=== PATIENT | male | born 1960 | race Caucasian/White ===

== ENCOUNTER → 2018-06-29 | Outpatient (CLI) | payer MEDICARE, MEDICAID ==
[~2018-06-29] MED LIST: DIGO125T PO; REGADENOSON 0.4 MG/5 ML DISP.SYRIN. IV ONE; WARF1TAB69 PO
--- NOTE | 2018-06-29 12:41 | RAD ---
MR#: [id number] Date of Study: 06/29/2018 Ordering Physician: NATHANIEL LORA, Referring Physician: MELECIO TRAN Tech: VICTORIANO Plummer ARRT (R) (N) APPROVED REPORT Test Type: Pharmacological Stress Nurse/Tech: Aliya Lewis RN Test Indications: Dyspnea on exertion, leg cramps Cardiac History: Hypertension, Diabetes,smoker, previous arrythmia (20 years ago) Medications: See Electronic Medical Record Medical History: See Electronic Medical Record Resting ECG: SR with BBB Resting Heart Rate: 80 bpm Resting Blood Pressure: 154/78mmHg Pretest Chest Pain: No chest pain Nurse/Tech Notes S1,S2 and lungs clear to auscultation. Consent: The procedure was explained to the patient in lay terms. Informed consent was witnessed. Vaughn eout was entered into [employer]. History and Stress Test performed by VICTORIANO Plummer ARRT (R) (N) Pharm. Details Pharmacologic stress testing was performed using 0.4mg per 5ml of regadenoson given intravenously ove r 7-10 seconds. Stress Symptoms Patient stated left side of his heart felt like it wasn't beating correctly. Fatigue POST EXERCISE Reason for Termination: Infusion complete Target HR: No Max HR: 91 bpm Max Blood Pressure: 150/57mmHg Blood Pressure response to exercise: Normal blood pressure response during stress. Heart Rate response to exercise: WNL Chest Pain: No. Arrhythmia: No. ST Change: No. INTERPRETATION Stress EKG Conclusion: The resting EKG shows a sinus rhythm with septal Q waves and nonspecific ST-T wave changes. The stress EKG shows no significant changes from baseline. No EKG evidence of stressed induced ischemia. Imaging Protocol IMAGE PROTOCOL: Rest Tc-99m/stress Tc-99m 1 day Rest: Stress: Viability: Radiopharm.Tc99m JjbihmjypGy40j Sestamibi Vbsl49wWa 34mCi Img Date 06/29/2018 06/29/2018 Inj-Img [id number]. 60min. Rest Admin Site:IV - Left AntecubitalAdministrator:Shayy Cherry, NMTCB, ARRT (R)(N) Stress Admin Site: IV - Left AntecubitalAdministrator: Elio Bautista RT (R)(N) STRESS DATA End Diast. Vol.121.0mlLVEDV index BSA51.0ml End Syst. Vol.50.0mlLVESV index BSA21.0ml Myocardial Cvar388.0gEject. Xndtcnih96.0% Stress Scores Regional WT3.00Summed WT23.00 Regional WM0.00Summed WM4.00 LV Perfusion The stress scans showed no significant defects. The rest scans showed no significant defects. Nuclear imaging shows no reversible ischemia or infarct. Wall Motion Left ventricular ejection fraction was 57% with no regional wall motion abnormalities. LV Perf. Quant 17 Seg. SSS0.00 17 Seg. SRS2.00 17 Seg. SDS0.00 Stress Defect Extent (% LAD)0.00Rest Defect Extent (% LAD)0.00Rev. Defect Extent (% LAD)0.00 Stress Defect Extent (% LCX) 0.00Rest Defect Extent (% LCX)7.50Rev. Defect Extent (% LCX)0.00 Stress Defect Extent (% RCA)0.00Rest Defect Extent (% RCA)0.00Rev. Defect Extent (% RCA)0.00 Stress Defect Extent (% ROYCE)0.00Rest Defect Extent (% ROYCE)2.40Rev. Defect Extent (% ROYCE)0.00 IMPRESSION LV Viability Summary: Significantly viable myocardium Conclusion 1. Abnormal baseline EKG but no EKG evidence of stress-induced ischemia. 2. Nuclear imaging shows no reversible ischemia or infarct. 3. Normal left ventricular systolic function with an ejection fraction of 57%. 4. Low to moderately low risk Lexiscan nuclear stress test. Signed by : Jose R Vega MD Electronically Approved : 06/29/2018 12:40:01
== END | disposition home or self-care (01) ==
LOC: NM 08:46
PROVIDERS: ATTEND Family Medicine
DX: I45.4 Nonspecific intraventricular block (principal); R25.2 Cramp and spasm; I10 Essential (primary) hypertension; E11.42 Type 2 diabetes mellitus with diabetic polyneuropathy; F17.200 Nicotine dependence, unspecified, uncomplicated
CPT/HCPCS: 78452; 93017; A9500; J2785

== ENCOUNTER → 2020-09-04 | Outpatient (CLI) | payer MEDICARE, MEDICAID ==
[2020-09-03 10:29] VITALS: BP 156/87
[~2020-09-04] MED LIST changes: +BUPR300T92 PO; +DAPT350V IV; -DIGO125T PO; +DIGO125T3 PO; +DIGO250T3 PO; +DULO60CA45 PO; +GABA300C9 PO; +GADOTERATE 7.5 MMOL/15ML VIAL. IVP ONE; +GLIM4TAB8 PO; +HYDR-2763 PO; +HYDR25TA10 PO; +INSU100I32 SQ; +LOSA100T14 PO; -REGADENOSON 0.4 MG/5 ML DISP.SYRIN. IV ONE; +WARF-31 PO
--- NOTE | 2020-09-05 09:47 | RAD ---
EXAMINATION: MRI LEFT LOWER EXTREMITY W/WO INDICATIONS: Diabetic foot wound, nonhealing wound left lateral ankle. TECHNIQUE: Multiplanar multisequence MRI of the left ankle was obtained before and after administrat ion of 20 mL clariscan contrast. COMPARISON: Left ankle radiograph 08/18/2020 FINDINGS: There is a tibiotalar joint effusion with extensive synovial thickening and enhancement. There is dif fuse marrow signal abnormality in the distal tibia and talus with extensive confluent low T1 signal, edema, and enhancement. There is diffuse tibiotalar cartilage loss, joint space narrowing, disruption of the subchondral bone plate of the medial talar dome, and erosion of the anterior tibial plafond. This is consistent with septic arthritis with osteomyelitis. Additional joint effusion in the subtalar joint. There is milder confluent low T1 marrow signal with marrow edema in the posterior facet of the calcaneus and along the lateral cortex of the calcaneus arnett spicious for osteomyelitis. There is extensive confluent low T1 signal and marrow edema in the distal fibula consistent with oste omyelitis. There is mild scattered marrow edema in the midfoot without evidence of osteomyelitis. There is a soft tissue wound overlying the posterior lateral ankle just posterior to the lateral mall eolus and directly overlying the peroneal tendons. There is a sinus tract extending deep to the later al malleolus and to the peroneal tendons. There is a longitudinal split tear of the peroneus brevis a nd longus tendon with severe tenosynovitis. There is moderate tenosynovitis of the medial flexor tend ons and possible minimal tenosynovitis of the anterior extensor tendons. Medial flexor and anterior e xtensor tendons are intact. Achilles tendon is intact. There is diffuse muscular atrophy and edema. There is a 1.6 x 1.0 cm T2 hyperintense, lobulated cystic structure with peripheral enhancement in th e tarsal tunnel between the posterior calcaneus and the posterior tibial neurovascular structures. Th is appears to be extending from the tibiotalar joint . Extensive diffuse subcutaneous edema. IMPRESSION: 1. 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 2. Osteomyelitis of the distal fibula. 3. Probable septated arthritis of the posterior subtalar joint and small amount of osteomyelitis analisa g the posterior subtalar facet and medial cortex of the calcaneus. 4. Soft tissue wound and sinus tract in the posterior lateral ankle just posterior to the distal fibu la and directly overlying the peroneal tendons. There are longitudinal split tears of the peroneal tendons and severe peroneal tenosynovitis, suspici ous for septic tenosynovitis. 5. Tenosynovitis of the medial flexor tendons. 6. 1.6 cm lobulated cystic structure with peripheral enhancement in the tarsal tunnel could be an abs cess or ganglion cyst. Electronically signed by: Rajwinder Richmond MD (09/05/2020 9:45 AM) [id number]
== END ==
LOC: MRI 12:43
PROVIDERS: ATTEND Preventive Medicine Undersea and Hyperbaric Medicine
DX: S86.312A Strain of muscle(s) and tendon(s) of peroneal muscle group at lower leg level, left leg, initial encounter (principal); M65.89 Other synovitis and tenosynovitis, multiple sites; M79.89 Other specified soft tissue disorders; M62.58 Muscle wasting and atrophy, not elsewhere classified, other site; M00.9 Pyogenic arthritis, unspecified; E11.621 Type 2 diabetes mellitus with foot ulcer; M25.48 Effusion, other site; X58.XXXA Exposure to other specified factors, initial encounter; Y93.89 Activity, other specified; Y92.89 Other specified places as the place of occurrence of the external cause; Y99.8 Other external cause status
CPT/HCPCS: 73723; A9575

== ENCOUNTER → 2020-10-29 | Outpatient (CLI) | payer MEDICARE, MEDICAID ==
[2020-09-06 19:00] VITALS: BP 117/84
[~2020-10-29] MED LIST changes: +AMLO-187 PO; +ASCO500C PO; -GADOTERATE 7.5 MMOL/15ML VIAL. IVP ONE; +IBUP-1007 PO; +INSU100I13 SQ; +INSU100V31 SQ; +LACT1CAP6 PO; +MULT-496 PO; +PIPE3.379 IV; +RIVA10TA PO
--- NOTE | 2020-10-29 17:34 | RAD ---
Exam Date: 10/29/2020 10:38 AM MRI OF LEFT UPPER EXTREMITY WITHOUT CONTRAST Indication: Reason: LEFT SHOULDER PAIN RADIATING DOWN HUMERUS, OBSERVED BICEP DEFORMITY / Spl. Instru ctions: PATIENT COULD NOT REMAIN STILL AND REFUSED TO FINISH DUE TO SHOULDER PAIN / History: FALL. TECHNIQUE: Multiplanar MR imaging of the left proximal humerus was performed without intravenous cont rast. The patient could not tolerate complete in the exam. Axial T1, axial T2 fat-saturated, and sa gittal oblique T1 weighted images were performed only. FINDINGS: Evaluation is suboptimal due to only a few sequences completed. Marked motion artifact further limit s evaluation, particularly on the axial T2 fat saturated sequence. There is a complete tear of the long of the biceps tendon with retraction of the torn tendon to the l evel of the proximal to mid humeral shaft. Prominent soft tissue edema and fluid signal at the site of the tear is consistent with hematoma, measuring approximately 2.6 x 1.9 cm. Degenerative changes seen at the glenohumeral and AC joints. There is an intact type II acromion. V isualized osseous structures otherwise demonstrate normal marrow signal without definite evidence for acute fracture. Evaluation of the rotator cuff tendons and labrum is suboptimal in the absence of coronal and sagitta l oblique fluid sensitive fat saturated sequences. Rotator cuff muscles demonstrate normal signal an d bulk on T1-weighted imaging. IMPRESSION: Suboptimal evaluation due to only a few sequences completed, as well as motion artifact further limit ing evaluation. Complete tear of the long head of the biceps tendon with retraction and hematoma. Electronically signed by: Luís Reynoso MD (10/29/2020 5:32 PM) NAILA
== END ==
LOC: MRI 10:26
PROVIDERS: ATTEND Family Medicine
DX: S46.112A Strain of muscle, fascia and tendon of long head of biceps, left arm, initial encounter (principal); M19.012 Primary osteoarthritis, left shoulder; E11.622 Type 2 diabetes mellitus with other skin ulcer; L97.323 Non-pressure chronic ulcer of left ankle with necrosis of muscle; X58.XXXA Exposure to other specified factors, initial encounter; Y93.89 Activity, other specified; Y92.89 Other specified places as the place of occurrence of the external cause; Y99.8 Other external cause status
CPT/HCPCS: 73218

== ENCOUNTER 2021-01-15 15:12 | Emergency (ER) | payer MEDICARE, OTHER ==
[2020-11-03 15:00] VITALS: BP 103/61
[~2021-01-15 15:12] MED LIST changes: +CALCIUM CHLORIDE 1,000 MG/10 ML DISP.SYRIN ONE; +EPINEPHrine SYRINGE 1 MG/10 ML SYRINGE ONE; +LIDOCAINE 2GM/500ML PREMIX BAG. IV ONE; +SODIUM BICARB ADULT 8.4% 50 MEQ/50 ML DISP.SYRIN. ONE
--- NOTE | 2021-01-15 15:28 | PHYS DOC ---
Past Medical History Past Medical History: A-Fib, Diabetes-Type II, Hypertension, Other Additional Past Medical Histor: pt poor historian Past Surgical History: Other Additional Past Surgical Histo: pt poor historian Smoking Status: Former Smoker Alcohol Use: None General Adult EDM: Chief Complaint: CPR/FULL ARREST HPI: HPI: Patient is a 60 year old male brought in by EMS for cardiac arrest. Per EMS, the patient reportedly was not feeling well, his brother called 911 after he saw the patient crawling on the floor. When EMS arrived, the patient was pale, cyanotic, had a GCS of approximately 6, and shortly after they arrived he laid his head back and he went into cardiac arrest. Rhythm was PEA and asystole. Multiple rounds of parenteral epinephrine are given. He has an intraosseous line in his right lower extremity. He was intubated. Intubation was not difficult, as the patient was completely apneic, without respiratory effort. He remains in full cardiac arrest on arrival. I am unable to procure any information from the patient directly. 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 CPR is in progress on arrival. The patient is being bagged via ET tube. Review of Systems: Review of Systems: As per HPI. Full, comprehensive review of systems is unobtainable secondary to patient's clinical condition. Heart Score: C/O Chest Pain: N/A Risk Factors: Risk Factors: DM, Current or recent (<one month) smoker, HTN, HLP, family history of CAD, obesity. Risk Scores: Score 0 - 3: 2.5% MACE over next 6 weeks - Discharge Home Score 4 - 6: 20.3% MACE over next 6 weeks - Admit for Clinical Observation Score 7 - 10: 72.7% MACE over next 6 weeks - Early Invasive Strategies Allergies: Allergies: Allergies Coded Allergies Type Severity Reaction Last Updated Verified I S O L A T I O N *CONTACT* Allergy Unknown MRSA- LEFT ANKLE AND BLOOD 10/30/20 Yes No Known Medication Allergies Allergy Unknown 10/30/20 Yes Physical Exam: PE: Constitutional: Unresponsive, moribund. HENT: Normocephalic, atraumatic Eyes: Pulls are fixed and dilated. Neck: Trachea is midline. Cardiovascular: Pulseless, no heart tones ausculated Lungs & Thorax: Equal chest rise with bagging. No spontaneous respirations. Upper horton are equal with bagging. Coarse breath sounds noted bilaterally. No asymmetric chest rise. No crepitus or palpable subcutaneous emphysema of the chest or thorax. Abdomen: Abdomen is obese, soft, mild to moderately distended, no apparent tenderness Skin: Pale, mottled skin. No open wounds. Extremities: Dressing noted on the left BKA. No obvious peripheral edema. Skin is cool, pale, mottled. Not well perfused. No obvious acute limb deformity. Neurologic: He is unresponsive. No purposeful movement. No gag reflex. No spontaneous respirations. He does not localize or withdraw from pain. Psychologic: He is unresponsive. EKG: EKG: [] Radiology/Procedures: Radiology/Procedures: [] Course & Med Decision Making: Course & Med Decision Making ACLS protocol was continued. CPR continued. He was given IV sodium bicarbonate, IV calcium, as well as multiple rounds of IV epinephrine. IV fluid bolus was given. ET tube was confirmed to be appropriately positioned via auscultation. The patient remained in PEA initially, then confirmed asystole. Note heart tones were auscultated. No ROSC was achieved. He remained unresponsive. Pupils are fixed and dilated. The decision was made to call his CODE BLUE at 3:20 PM. Please see nursing notes for further details of resuscitation measures and the medications administered. I called the patient's next of kin, his brother, Ciro, and I informed him th at the patient had . Ciro's number is area code [phone]. He does not wish to have an autopsy performed. He requested that [facility] be contacted. I contacted the home personally, and I gave them the patient's information and next of kin information. [place] [facility] from [place] [facility] The patient's brother reports that he wishes for the patient to be cremated. I contacted the terminal computer operator's office and informed him of the the patient as well, and they do not feel autopsy is warranted, and they are fine releasing the patient to the [facility] [place]. The patient's primary care physician is Dr. Nathaniel Lora. Dr. Minor is on-call for him, and he reports that he will convey this information to Dr. Lora, and Dr. Lora will sign the certificate. Arturo Disclaimer: Arturo Disclaimer: This electronic medical record was generated, in whole or in part, using a voice recognition dictation system. Departure Departure Impression: Primary Impression: Cardiorespiratory arrest Disposition: 20 Condition: Referrals: NATHANIEL LORA MD (PCP) ARPIT HALE DO Jan 15, 2021 15:28
== END 2021-01-15 15:20 ==
LOC: ER 15:12
DX: I46.9 Cardiac arrest, cause unspecified (principal); I48.91 Unspecified atrial fibrillation; E11.9 Type 2 diabetes mellitus without complications; I10 Essential (primary) hypertension; Z87.891 Personal history of nicotine dependence; Z91.041 Radiographic dye allergy status
CPT/HCPCS: 31500; 92950; J0171; J2001; J3490; 99285-25